=== PATIENT | female | born 1965 | race Hispanic/Latino ===

== ENCOUNTER 2019-05-12 08:14 | Emergency (ER) | payer SELFPAY ==
[2019-05-12] MEDS ORDERED: NACL 0.9% 500 ML 500 ML IV ONE (08:44)
[2019-05-12 09:33] LABS: Basophils % (Auto) 0.5 % (0.0-1.8); Eosinophils % (Auto) 1.3 % (0.0-4.3); Hematocrit 39.5 % (30.3-42.9); Hemoglobin 13.3 gm/dl (10.1-14.3); Lymphocytes % (Auto) 29.1 % (13.4-35.0); Mean Corpuscular HGB Conc 34 % (30-34); Mean Corpuscular Volume 89 fl (79-97); Monocytes # (Auto) 0.2 K/mm3 (0.0-0.8); Monocytes % (Auto) 6.9 % (0.0-7.3); Platelet Count 240 K/mm3 (140-440); Red Blood Count 4.42 M/mm3 (3.65-5.03); Red Cell Distribution Width 13.5 % (13.2-15.2)
[2019-05-12 09:44] LABS: Albumin 4.3 g/dL (3.9-5); Calcium 9.7 mg/dL (8.4-10.2); INR 1.03 (0.87-1.13)
[2019-05-12 11:12] LABS: Bacteria,Urine 1+ /HPF (Negative); Bilirubin,Urine NEG (Negative); Blood,Urine NEG (Negative); Color,Urine Yellow (Yellow); Mucus,Urine FEW /HPF; Protein,Urine <15 mg/dL mg/dL (Negative); Urobilinogen,Urine < 2.0 mg/dL (<2.0)
[2019-05-12] MEDS ORDERED: CLEOCIN PO ONE (11:21)
--- NOTE | 2019-05-12 11:35 | Emergency Department Report ---
HPI - General Chief Complaint: Skin/Abscess/Foreign Body Time Seen by Provider: 05/12/19 11:20 - HPI HPI: 53-year-old female presents to the emergency department via EMS from home with complaint of an infection of her left lower leg. Patient says that she got a dog chain wrapped around her ankle 4 days ago and this chain was dirty. Since that time she has had some left lower leg swelling, redness and some red lesions. She previously said it was warm and was draining but that has since stopped. The patient has a past medical history of hypertension, depression, anxiety, diverticulosis. She does not have a primary care physician. She has been using some Neosporin and peroxide for her symptoms. ED Past Medical Hx - Past Medical History Previous Medical History?: Yes Hx Hypertension: Yes (Not taking meds) Hx Psychiatric Treatment: (Depression, anxiety) Additional medical history: HPV. Diverticulitis - Surgical History Past Surgical History?: Yes Additional Surgical History: corrective left kidney surgery. tubal ligation. tonsillectomy - Social History Smoking Status: Current Every Day Smoker Substance Use Type: Non Opiate Pain - Medications Home Medications: Home Medications Medication Instructions Recorded Confirmed Last Taken Type Ciprofloxacin HCl [Cipro] 500 mg PO Q12H #6 tab 01/07/14 Unknown Rx HYDROcodone/APAP 5-325 [Finley 1 each PO Q6HR PRN #16 tablet 01/07/14 Unknown Rx 5-325 mg TAB] Phenazopyridine [Pyridium] 100 mg PO Q8H #9 tablet 01/07/14 Unknown Rx Docusate Sodium [Colace] 100 mg PO BID PRN #60 capsule 10/17/18 Unknown Rx hydroCHLOROthiazide [HCTZ] 25 mg PO QDAY #30 tablet 10/17/18 Unknown Rx Doxycycline Hyclate [Doxycycline 100 mg PO Q12HR #14 tab 05/12/19 Unknown Rx Hyclate TAB] HYDROcodone/APAP 5-325 [Finley 1 each PO Q6HR PRN #10 tablet 05/12/19 Unknown Rx 5/325] amLODIPine [Norvasc] 5 mg PO DAILY #30 tab 05/12/19 Unknown Rx amLODIPine [Norvasc] 10 mg PO DAILY #30 tab 05/12/19 Unknown Rx ED Review of Systems ROS: Stated complaint: POSS STAPH INFECTION Other details as noted in HPI Comment: All other systems reviewed and negative Constitutional: denies: chills, fever Eyes: denies: eye pain, vision change ENT: denies: ear pain, throat pain Respiratory: denies: cough, shortness of breath Cardiovascular: denies: chest pain, palpitations Gastrointestinal: denies: abdominal pain, vomiting Genitourinary: denies: dysuria, discharge Musculoskeletal: arthralgia, myalgia. denies: back pain Skin: rash, lesions Neurological: denies: headache, numbness Physical Exam - Physical Exam Vital Signs: Vital Signs 05/12/19 05/12/19 08:39 11:29 Temperature 97.9 F 97.7 F Pulse Rate 87 74 Respiratory 18 18 Rate Blood Pressure 184/108 Blood Pressure 180/110 [Right] O2 Sat by Pulse 100 99 Oximetry Physical Exam: GENERAL: The patient is well-developed well-nourished. HENT: Normocephalic. Atraumatic. Patient has moist mucous membranes. EYES: Extraocular motions are intact. Pupils equal reactive to light bilaterally. NECK: Supple. Trachea is midline. CHEST/LUNGS: Clear to auscultation. There is no respiratory distress noted. HEART/CARDIOVASCULAR: Regular. There is no tachycardia. There is no murmur. ABDOMEN: Abdomen is soft, nontender. Patient has normal bowel sounds. There is no abdominal distention. SKIN: Patient has some red papular and macular lesions to the distal left lower extremity. There is some erythema to this region with some mild warmth but no fluctuance. No bleeding, weeping, or drainage. NEURO: The patient is awake, alert, and oriented. The patient is cooperative. The patient has no focal neurologic deficits. The patient has normal speech. MUSCULOSKELETAL: There is some tenderness to palpation to the left lower leg with the patient has what appears to be a cellulitis and rash. There is no limitation range of motion. +2/4 dorsalis pedal pulse. ED Course Vital Signs 05/12/19 05/12/19 08:39 11:29 Temperature 97.9 F 97.7 F Pulse Rate 87 74 Respiratory 18 18 Rate Blood Pressure 184/108 Blood Pressure 180/110 [Right] O2 Sat by Pulse 100 99 Oximetry ED Medical Decision Making - Lab Data Result diagrams: 05/12/19 09:03 05/12/19 09:03 - Radiology Data Radiology results: report reviewed DUPLEX DOPPLER LOWER EXTREMITY VEINS, LEFT INDICATION: left leg pain and swelling. Left lower extremity pain. TECHNIQUE: Duplex doppler imaging was performed through the veins of the left lower extremity using venous compression and other maneuvers. COMPARISON: None available. FINDINGS: Common Femoral vein: Negative. Superficial Femoral vein: Negative. Popliteal vein: Negative. Calf veins: Negative. Additional findings: None. IMPRESSION: 1. No sonographic evidence for DVT in the left lower extremity. CT BRAIN: 05/12/2019 INDICATION / CLINICAL INFORMATION: headache. COMPARISON: None available. FINDINGS: BRAIN/INTRACRANIAL STRUCTURES: Unenhanced CT images of the brain demonstrate no evidence of acute intracranial abnormality. Ventricles and sulci are normal in size and shape. There is no evidence of ischemic injury, hemorrhage, or mass. There are no abnormal extra-axial fluid collections. EXTRACRANIAL STRUCTURES: Incidental note is made of a single opacified right ethmoid air cells. Paranasal sinuses are otherwise clear. IMPRESSION: No evidence of acute intracranial abnormality. - Medical Decision Making This patient presents to the emergency department with a complaint of a rash, some pain and some swelling to the left lower extremity that started when a dog chain was wrapped around her leg. She does have some mild swelling compared to the right side. She has a maculopapular rash as well as some erythema. There is warmth but no fluctuance. An ultrasound was done that did not show any signs of DVT. Patient's labs were unremarkable including no leukocytosis, no lactic acidosis. No signs of sepsis. Patient was given a dose of clindamycin. She also presented with some hypertension with medication noncompliance. Her blood pressure came down to a more reasonable level without any antihypertensive medication given. After this initial workup was done, the patient started complaining of a headache. Along with her elevated blood pressure a CT scan of the head was done without contrast and it did not show any bleed, shift, mass, ischemia, or any other acute process. On examination she does not have any focal motor or sensory deficits in her cranial nerves are intact. The patient will be discharged home with antibiotics, pain medication and antihypertensive medication. The amlodipine and doxycycline were found to be $4 at [facility] and this was expressed to the patient. She will return to the emergency Department with any worsening of her symptoms or any acute distress. She has been given multiple primary care clinic referrals. - Differential Diagnosis cellulitis, dermatitis, sepsis Critical Care Time: No Critical care attestation.: If time is entered above; I have spent that time in minutes in the direct care of this critically ill patient, excluding procedure time. ED Disposition Clinical Impression: Left leg cellulitis, Left leg pain Hypertension Qualifiers: Hypertension type: essential hypertension Qualified Code(s): I10 - Essential (primary) hypertension Disposition: TO HOME OR SELFCARE Is pt being admited?: No Condition: Stable Instructions: Cellulitis (ED), Hypertension (ED), Arthralgia (ED) Additional Instructions: Please follow up with a primary care physician in the next few days and I am giving you a referral for multiple primary care clinics in the area. I'm starting you on a medication for high blood pressure, called Norvasc/amlodipine. This medication should only be $4 at certain pharmacies such as [facility]. This medication is taken once daily, usually in the morning. Try to stay away from foods that are high in salt and caffeinat ed products to help with her blood pressure. Keep a blood pressure log. Take the antibiotics as prescribed. The antibiotic prescribed, doxycycline, can make you more susceptible to sunburns and the effects of UV light. Please wear sunscreen when going outdoors. Return to the emergency Department with any worsening of your symptoms or with any acute distress. You have been prescribed a medication that is sedating and therefore should not be taken prior to driving, working, and responsible for children and in no way should be mixed with alcohol of any quantity. Prescriptions: Doxycycline Hyclate [Doxycycline Hyclate TAB] 100 mg PO Q12HR #14 tab HYDROcodone/APAP 5-325 [Finley 5/325] 1 each PO Q6HR PRN #10 tablet PRN Reason: Pain amLODIPine [Norvasc] 10 mg PO DAILY #30 tab amLODIPine [Norvasc] 5 mg PO DAILY #30 tab Referrals: [facility] [Outside] - 3-5 Days [facility] [Outside] - 3-5 Days [facility] [Outside] - 3-5 Days Time of Disposition: 15:17
[2019-05-12] MEDS ORDERED: NORVASC PO ONE (12:45)
--- NOTE | 2019-05-12 13:22 | Vascular Lab Report ---
DUPLEX DOPPLER LOWER EXTREMITY VEINS, LEFT INDICATION: left leg pain and swelling. Left lower extremity pain. TECHNIQUE: Duplex doppler imaging was performed through the veins of the left lower extremity using venous compr ession and other maneuvers. COMPARISON: None available. FINDINGS: Common Femoral vein: Negative. Superficial Femoral vein: Negative. Popliteal vein: Negative. Calf veins: Negative. Additional findings: None. IMPRESSION: 1. No sonographic evidence for DVT in the left lower extremity. Signer Name: Ezra Guerrier MD Signed: 05/12/2019 1:18 PM Workstation Name: [id number]
[2019-05-12] MEDS ORDERED: NORMODYNE IV ONE (13:41)
[2019-05-12 14:08] VITALS: BP 159/85
--- NOTE | 2019-05-12 14:53 | Cat Scan Report ---
CT BRAIN: 05/12/2019 INDICATION / CLINICAL INFORMATION: headache. COMPARISON: None available. FINDINGS: BRAIN/INTRACRANIAL STRUCTURES: Unenhanced CT images of the brain demonstrate no evidence of acute int racranial abnormality. Ventricles and sulci are normal in size and shape. There is no evidence of ischemic injury, hemorrhage, or mass. There are no abnormal extra-axial fluid collections. EXTRACRANIAL STRUCTURES: Incidental note is made of a single opacified right ethmoid air cells. Paran savannah sinuses are otherwise clear. IMPRESSION: No evidence of acute intracranial abnormality. All CT scans at this location are performed using dose reduction to ALARA by means of automated expos ure control. Signer Name: Christiano Simms MD Signed: 05/12/2019 2:49 PM Workstation Name: [id number]
== END 2019-05-12 15:40 | disposition home or self-care (01) ==
LOC: ED 08:14
DX: L03.116 Cellulitis of left lower limb (principal); I10 Essential (primary) hypertension; F32.9 Major depressive disorder, single episode, unspecified; F41.9 Anxiety disorder, unspecified; F17.200 Nicotine dependence, unspecified, uncomplicated; Z98.51 Tubal ligation status; Z90.89 Acquired absence of other organs; Z79.899 Other long term (current) drug therapy; Z88.2 Allergy status to sulfonamides
CPT/HCPCS: 36415; 70450; 80053; 81001; 82140; 82805; 85025; 85610; 87040; 87076; 87086; 87186

== ENCOUNTER 2019-05-24 18:45 | Emergency (ER) | payer SELFPAY ==
[2019-05-24 18:56] VITALS: BP 145/100
--- NOTE | 2019-05-24 18:58 | Event Note ---
ED Screening Note Date of service: 05/24/19 Time: 18:55 ED Screening Note: This is a 53 y.o. F. that presents to the ER with swelling and redness to RLE x 1 week. Patient is homeless and states she was feeding a dog when his chain wrapped around her RLE. This initial assessment/diagnostic orders/clinical plan/treatment(s) is/are subject to change based on patients health status, clinical progression and re- assessment by fellow clinical providers in the ED. Further treatment and workup at subsequent clinical providers discretion. Patient/guardian urged not to elope from the ED as their condition may be serious if not clinically assessed and managed. Initial orders include:
--- NOTE | 2019-05-24 20:01 | Emergency Department Report ---
ED Extremity Problem HPI - General Chief complaint: Extremity Problem,Nontraumatic Stated complaint: L FOOT PAIN Time Seen by Provider: 05/24/19 18:55 Source: patient, EMS Mode of arrival: Ambulatory Limitations: No Limitations - History of Present Illness Initial comments: This is a 53 y.o. F. that presents to the ER with swelling and redness to RLE x 1 week. Patient is homeless and states she was feeding a dog when his chain wrapped around her RLE. Complaint: extremity pain, extremity swelling Onset/Timin -: week(s) Location: left, lower extremity History of Same: Yes -: Yes myalgia - Related Data Previous Rx's Medication Instructions Recorded Last Taken Type Ciprofloxacin HCl [Cipro] 500 mg PO Q12H #6 tab 01/07/14 Unknown Rx HYDROcodone/APAP 5-325 [Bullock 1 each PO Q6HR PRN #16 tablet 01/07/14 Unknown Rx 5-325 mg TAB] Phenazopyridine [Pyridium] 100 mg PO Q8H #9 tablet 01/07/14 Unknown Rx Docusate Sodium [Colace] 100 mg PO BID PRN #60 capsule 10/17/18 Unknown Rx hydroCHLOROthiazide [HCTZ] 25 mg PO QDAY #30 tablet 10/17/18 Unknown Rx Doxycycline Hyclate [Doxycycline 100 mg PO Q12HR #14 tab 05/12/19 Unknown Rx Hyclate TAB] HYDROcodone/APAP 5-325 [[place] 1 each PO Q6HR PRN #10 tablet 05/12/19 Unknown Rx 5/325] amLODIPine [Norvasc] 5 mg PO DAILY #30 tab 05/12/19 Unknown Rx amLODIPine [Norvasc] 10 mg PO DAILY #30 tab 05/12/19 Unknown Rx Amoxicillin [Trimox CAP] 500 mg PO Q8H #30 capsule 05/24/19 Unknown Rx Ibuprofen [Motrin 600 MG tab] 600 mg PO Q8H PRN #30 tablet 05/24/19 Unknown Rx amLODIPine [Norvasc] 5 mg PO DAILY #30 tab 05/24/19 Unknown Rx Allergies Allergy/AdvReac Type Severity Reaction Status Date / Time Sulfa (Sulfonamide Allergy Hives Verified 01/07/14 18:29 Antibiotics) ED Review of Systems ROS: Stated complaint: L FOOT PAIN Other details as noted in HPI ED Past Medical Hx - Past Medical History Hx Hypertension: Yes (Not taking meds) Hx Psychiatric Treatment: (Depression, anxiety) Additional medical history: HPV. Diverticulitis - Surgical History Additional Surgical History: corrective left kidney surgery. tubal ligation. tonsillectomy - Social History Smoking Status: Never Smoker Substance Use Type: None - Medications Home Medications: Home Medications Medication Instructions Recorded Confirmed Last Taken Type Ciprofloxacin HCl [Cipro] 500 mg PO Q12H #6 tab 01/07/14 Unknown Rx HYDROcodone/APAP 5-325 [[place]ock 1 each PO Q6HR PRN #16 tablet 01/07/14 Unknown Rx 5-325 mg TAB] Phenazopyridine [Pyridium] 100 mg PO Q8H #9 tablet 01/07/14 Unknown Rx Docusate Sodium [Colace] 100 mg PO BID PRN #60 capsule 10/17/18 Unknown Rx hydroCHLOROthiazide [HCTZ] 25 mg PO QDAY #30 tablet 10/17/18 Unknown Rx Doxycycline Hyclate [Doxycycline 100 mg PO Q12HR #14 tab 05/12/19 Unknown Rx Hyclate TAB] HYDROcodone/APAP 5-325 [[place]ock 1 each PO Q6HR PRN #10 tablet 05/12/19 Unknown Rx 5/325] amLODIPine [Norvasc] 5 mg PO DAILY #30 tab 05/12/19 Unknown Rx amLODIPine [Norvasc] 10 mg PO DAILY #30 tab 05/12/19 Unknown Rx Amoxicillin [Trimox CAP] 500 mg PO Q8H #30 capsule 05/24/19 Unknown Rx Ibuprofen [Motrin 600 MG tab] 600 mg PO Q8H PRN #30 tablet 05/24/19 Unknown Rx amLODIPine [Norvasc] 5 mg PO DAILY #30 tab 05/24/19 Unknown Rx ED Physical Exam - General Limitations: No Limitations General appearance: alert, in no apparent distress - Head Head exam: Present: atraumatic, normocephalic - Eye Eye exam: Present: normal appearance - ENT ENT exam: Present: mucous membranes moist - Expanded Lower Extremity Exam Left Hip exam: Present: normal inspection, full ROM Upper Leg exam: Present: normal inspection, full ROM Knee exam: Present: normal inspection, full ROM Lower Leg exam: Present: normal inspection, full ROM Ankle exam: Present: normal inspection, full ROM Foot/Toe exam: Present: normal inspection, full ROM. Absent: tenderness, swelling Neuro vascular tendon exam: Present: no vascular compromise Gait: Positive: observed and normal - Back Exam Back exam: Present: normal inspection, full ROM - Neurological Exam Neurological exam: Present: alert, oriented X3 - Psychiatric Psychiatric exam: Present: normal affect, normal mood - Skin Skin exam: Present: warm, dry, intact, normal color. Absent: rash ED Course Vital Signs 05/24/19 18:55 Temperature 98.5 F Pulse Rate 80 Respiratory 16 Rate Blood Pressure 145/100 O2 Sat by Pulse 100 Oximetry ED Medical Decision Making - Medical Decision Making 23-year-old female comes in for complaint of left foot pain. She reports she has a history of cellulitis. Examination shows normal examination. Discussed the patient I will change her antibiotics to amoxicillin since it's free as well as her Norvasc 5 mg which is free at [facility] patient be discharged home in stable condition. Critical care attestation.: If time is entered above; I have spent that time in minutes in the direct care of this critically ill patient, excluding procedure time. ED Disposition Clinical Impression: Hypertension, Left leg pain Disposition: [id number] TO HOME OR SELFCARE Is pt being admited?: No Does the pt Need Aspirin: No Condition: Stable Instructions: Hypertension (ED), Arthralgia (ED) Additional Instructions: Please completed antibiotics as prescribed. Take her hypertensive medicine as prescribed. Pain medication as needed. Prescriptions: Ibuprofen [Motrin 600 MG tab] 600 mg PO Q8H PRN #30 tablet PRN Reason: Pain amLODIPine [Norvasc] 5 mg PO DAILY #30 tab Amoxicillin [Trimox CAP] 500 mg PO Q8H #30 capsule Referrals: [facility] [Outside] - 3-5 Days [facility] [Outside] - 3[facility]5 Days [facility] [Outside] - 3-5 Days
== END 2019-05-24 20:25 | disposition home or self-care (01) ==
LOC: ED 18:45
DX: M79.662 Pain in left lower leg (principal); I10 Essential (primary) hypertension; F32.9 Major depressive disorder, single episode, unspecified; F41.9 Anxiety disorder, unspecified; Z98.51 Tubal ligation status; Z90.89 Acquired absence of other organs; Z79.899 Other long term (current) drug therapy; Z88.2 Allergy status to sulfonamides
CPT/HCPCS: 99283